=== PATIENT | female | born 2005 | race Caucasian/White ===

== ENCOUNTER → 2024-02-03 11:40 | Outpatient (REF) | payer OTHER, SELFPAY ==
--- NOTE | 2024-02-03 17:17 | HPS.HSE ---
Family Physician
-
Family Physician: Brady Lopez
Chief Complaint
-
Right lower quadrant abdominal pain
History of Present Illness
This is a 18-year-old female presenting to the emergency department today with concerns of right lower quadrant abdominal pain that began roughly 4 days ago. At the onset there was associated nausea and vomiting as well as fevers but these have
dissipated since then. Initially the patient and family thought that this would resolve on its own however as the pain continue to persist she presented to our ER today. Here she has no white count but a CT scan demonstrates dilated fluid-filled
appendix with surrounding inflammation consistent with appendicitis. The patient denies Fever, Chest Pain, Shortness Of Breath, Nausea, Vomiting, changes in urinary and bowel habits, unintentional weight loss.
Medical History
Past Medical History
Past Medical History: Reports None
Past Surgical History: Reports None
Social History
Tobacco: Non-smoker
Alcohol: None
Drug: None
Personal: Single
Living: With Family
Employment: Other (Student)
Family History
Family History: Not pertinent
Allergies / Home Medications
Allergies reflects when Allergies were last updated in [facility].
Home Medications with original date entered in [facility]
Allergy/Medication List:
None
Review of Systems
-
A 12 point ROS was completed and negative except as noted: Yes
Physical Exam
Physical Exam
General: Well Developed
HEENT: NormoCephalic
GI: Soft, Non Distended and Tender (Mild focal tenderness in the right lower quadrant)
Data Reviewed
-
CT Scan: Image Personally Visualized and interpreted, Report Reviewed by me, Discussed with Physician, Discussed with Patient and Discussed with Family
Lab Data: Labs Reviewed by me, Discussed with Physician, Discussed with Patient and Discussed with Family
Impression/Plan
-
IMPRESSION:
This is a 18-year-old female with acute appendicitis
PLAN:
Will plan for a laparoscopic appendectomy in the OR tomorrow.
Okay for full liquid diet, n.p.o. at midnight
IV antibiotics.
Risks/Benefits/Alternatives, expected postoperative course and possible complications (bleeding, infection, injury to surrounding structures, acute/chronic pain) discussed at length. Patient wishes to proceed with surgery. All questions answered.
Consent obtained.
I spent 60 minutes in total for the care of this patient today including direct patient care and counseling, reviewing labs, imaging, coordination of care, as well as documentation.
== END ==
LOC: RAD 11:40
PROVIDERS: ATTENDING PHYSICIAN Family Medicine; FAMILY PHYSICIAN Family Medicine
DX: R63.0 Anorexia (principal); R10.31 Right lower quadrant pain
CPT/HCPCS: 74177; Q9967

== ENCOUNTER 2024-02-03 21:36 | Day surgery (SDC) | payer OTHER, SELFPAY ==
[2024-02-03 14:58] VITALS: BP 116/63
[2024-02-03 15:48] VITALS: BMI 20.7
[2024-02-03 16:05] LABS: % Basophils 0.4 % (0-2); % Immature Granulocytes 0.2 % (0-0.5); % Lymphocytes 39.5 % (20.5-51.1); % Monocytes 4.7 % (1.7-9.3); % Neutrophils 54.2 % (42.2-75.2); Absolute Eosinophils 0.1 10^3/uL (0-0.7); Absolute Lymphocytes 1.9 10^3/uL (1.2-3.4); Absolute Monocytes 0.2 10^3/uL (0.1-0.6); Absolute Neutrophils 2.7 10^3/uL (1.4-6.5); Hematocrit 33.4 % (37.0-47.0); Hemoglobin 11.2 g/dL (12.0-16.0); Mean Corp Hgb Conc. 33.5 g/dL (33.0-37.0); Mean Corpuscular Hgb 30.6 pg (27.0-31.0); Mean Corpuscular Volume 91.3 fL (81.0-99.0); Mean Platelet Volume 10.1 fL (7.4-10.4); Nucleated Red Blood Cells % 0 %; Platelet Count 251 10^3/uL (130-400); Red Blood Cell Count 3.66 10^6/uL (4.20-5.40); Red Cell Dist. Width 12.9 % (11.5-14.5); White Blood Cell Count 4.9 10^3/uL (4.8-10.8)
--- NOTE | 2024-02-03 16:09 | ED.GENMED ---
History of Present Illness
<HERMES Narayanan Jr. Last Filed: 02/03/24 16:46>
General
Chief Complaint: Abdominal Pain
Source: patient and family
Exam Limitations: none
Time Seen by Provider: 02/03/24 15:46
Nursing documentation reviewed up to this point in time: agreed with
History of Present Illness
History of Present Illness:
18-year-old female presenting to the emergency department today with concerns of right lower quadrant abdominal pain over the past 4 days. Associated nausea and vomiting. Reproducible pain to palpation here. An outpatient CT scan ordered by the
primary care doctor which saw acute appendicitis was sent directly to the ER. Denies any fevers. No history of surgeries no daily meds did not eat today.
Review of Systems
<HERMES Narayanan Jr. Last Filed: 02/03/24 16:46>
Review of Systems
Allergies reviewed?: Yes
All Other Systems: ROS reviewed and negative except as documented in HPI and ROS
Phy Exam
<HERMES Narayanan Jr. Last Filed: 02/03/24 16:46>
Physical Exam
Physical Exam:
GENERAL: Alert , in no apparent distress
EYE: pupils equal and reactive
NECK: Supple, no significant adenopathy.
ENT: o/p clr, mmm.
CARDIAC: Regular rate and rhythm .
LUNGS: Clear breath sounds bilaterally, no acute respiratory distress, no wheezes/rales/rhonchi
ABDOMEN: Tenderness outpatient to the right lower quadrant otherwise soft benign abdomen.
NEUROLOGICAL: Alert and oriented, no focal neuro deficits
SKIN: Warm and dry, skin intact.
MUSCULOSKELETAL: No edema, well perfused.
PSYCH: Normal and appropriate interaction.
Course
<HERMES Narayanan Jr. Last Filed: 02/03/24 16:46>
Orders/Labs/Results
Orders:
Orders
02/03/24 15:03
Test Result ONCE
02/03/24 15:57
Complete Blood Count/With Diff Urgent
Comprehensive Metabolic Panel Urgent
HCG, Serum Qualitative Screen Urgent
02/03/24 16:12
Piperacillin/Tazo 3.375 Gram [Zosyn] 3.375 gram in 50 ml IV NOW
Abnormal Lab Results
02/03/24
15:57
RBC 3.66 L 10^6/uL
(4.20-5.40)
Hgb 11.2 L g/dL
(12.0-16.0)
Hct 33.4 L %
(37.0-47.0)
02/03/24 15:57
02/03/24 15:57
Vital Signs
Initial and Last Documented VS:
Initial Vital Signs
Temp Pulse Resp BP Pulse Ox
98.0 F 86 18 116/63 100
02/03/24 14:58 02/03/24 14:58 02/03/24 14:58 02/03/24 14:58 02/03/24 14:58
Last Documented Vital Signs
Temp Pulse Resp BP Pulse Ox
98.0 F 86 18 116/63 100
02/03/24 14:58 02/03/24 14:58 02/03/24 14:58 02/03/24 14:58 02/03/24 14:58
<Wallace Cordova, DO - Last Filed: 02/03/24 16:28>
Orders/Labs/Results
Orders:
Orders
02/03/24 15:03
Test Result ONCE
02/03/24 15:57
Complete Blood Count/With Diff Urgent
Comprehensive Metabolic Panel Urgent
HCG, Serum Qualitative Screen Urgent
02/03/24 16:12
Piperacillin/Tazo 3.375 Gram [Zosyn] 3.375 gram in 50 ml IV NOW
Abnormal Lab Results
02/03/24
15:57
RBC 3.66 L 10^6/uL
(4.20-5.40)
Hgb 11.2 L g/dL
(12.0-16.0)
Hct 33.4 L %
(37.0-47.0)
02/03/24 15:57
02/03/24 15:57
Vital Signs
Initial and Last Documented VS:
Initial Vital Signs
Temp Pulse Resp BP Pulse Ox
98.0 F 86 18 116/63 100
02/03/24 14:58 02/03/24 14:58 02/03/24 14:58 02/03/24 14:58 02/03/24 14:58
Last Documented Vital Signs
Temp Pulse Resp BP Pulse Ox
98.0 F 86 18 116/63 100
02/03/24 14:58 02/03/24 14:58 02/03/24 14:58 02/03/24 14:58 02/03/24 14:58
<Jorge Luis Schwartz Jr., PA-C - Last Filed: 02/03/24 16:46>
MDM/Problems Addressed
MDM/Problems Addressed:
18-year-old female presenting with confirmed appendicitis on outpatient CT scan. Here the patient has some mild tenderness ovation to the right lower quadrant. She did not eat today vital signs are normal patient in no distress case discussed with
general will be admitted for further management.
<Jorge Luis Schwartz Jr., PA-C - Last Filed: 02/03/24 16:46>
*Critical Care Note
Total Time (30-74mins, 75-104mins- exclusive of procedures): Not Applicable
ED Attending Note
<Jorge Luis Schwartz Jr., PA-C - Last Filed: 02/03/24 16:46>
-
Portions of this chart may have been created with voice recognition software.� Occasional wrong word or��sound alike� substitutions may have occurred due to the inherent limitations of voice recognition software.
<Wallace Cordova DO - Last Filed: 02/03/24 16:28>
ED Attending Note
I performed the substantive portion of visit, reviewed & personally made and approve the management plan that is documented in note by myself or LARRY.: Yes
ED Attending Note:
I have reviewed and agree with history and treatment plan by Kvng Schwartz. Discussed with Dr. Solis, general surgery who will admit to his service and plan for surgery in a.m.
Discharge Plan
Departure
Patient Disposition: Admit
Date of Disposition: 02/03/24
Time of Disposition: 16:26
Admit to: Med/Surg
Presentation/result/management discussed w/ accepting MD/DO: Gen surgery Dr. Solis
Patient with high blood pressure during this ER visit?: No
Condition: Good
Discharge Problem:
Acute appendicitis
Prescriptions:
No Action
No Current Medications
0
Referrals:
Brady Lopez DO [Family Provider] -
Interventions
Interventions:
*Risk Screen - Suicide Last Done: 02/03/24 14:58
*General Assessment Last Done: 02/03/24 14:58
*Neglect/Abuse Screening Last Done: 02/03/24 14:58
ED- Fall Risk Assessment Last Done: 02/03/24 15:49
*ED COVID-19 Vaccine History Last Done: 02/03/24 15:49
MR-Rbftni-Bqizrmbyph Assessment Last Done: 02/03/24 15:49
Discharge Date and Time
Print Language: ESTONIAN
[2024-02-03 16:17] LABS: HCG, Serum Qualitative Screen Negative
[2024-02-03 16:20] LABS: ALT (SGPT) 18 U/L (0-35); AST (SGOT) 29 U/L (14-36); Albumin 4.7 g/dl (3.5-5.0); Alkaline Phosphatase 52 U/L (38-126); Blood Urea Nitrogen 10 mg/dl (7-17); Calcium 9.5 mg/dl (8.4-10.2); Carbon Dioxide 27 mmol/L (22-30); Chloride 98 mmol/L (98-107); Estimated Creatinine Clearance 125 ml/min; Glucose 89 mg/dl (70-99); Potassium 4.2 mmol/L (3.5-5.1); Sodium 136 mmol/L (135-145); Total Protein 7.4 g/dl (6.3-8.2); eGFR > 60.00
[2024-02-03] MEDS: ZOSYN 50 IV ×2 (16:35→22:19)
[2024-02-03] MEDS: LOVENOX 40 MG SC (20:47)
[2024-02-03] MEDS: NORMOSOL-R/PLASMALYTE-A 1000 IV (20:50)
[2024-02-03 21:00] VITALS: BP 109/65
[2024-02-04] VITALS (11 sets, daily range): BP systolic 95–121; BP diastolic 46–69
[2024-02-04] MEDS: TYLENOL PO ×2 (00:16→05:46)
[2024-02-04] MEDS: ZOSYN 50 IV ×3 (05:17→15:36)
--- NOTE | 2024-02-04 07:56 | W.SUR.PREOP ---
Pre-Operative Surgical Note
-
I have examined this patient prior to the performance of the scheduled procedure.
The patient's condition is unchanged from the time of the current History and
Physical and the patient is able to undergo the scheduled procedure.
--- NOTE | 2024-02-04 10:28 | PTCARENOTE ---
pt aasox3. states no pain in abd. tender to touch. room air bs clear. ivf running as ordered. pt sent to OR with mother and 1000 zosyn dose.
--- NOTE | 2024-02-04 11:06 | W.IMMPOSTOP ---
Surgical Immed Post Op Note
-
Primary Surgeon: Andrez Solis MD
Assisting Surgeon: None
Pre-op Diagnosis: Acute appendicitis
Post-op Diagnosis: Same
Procedure Performed: Laparoscopic
Anesthesia Type: General
Specimen / Cultures: Appendix
Estimated Blood Loss: 3 cc
Complications: None
Operative Findings: Three 5 mm port appendectomy. Acutely inflamed, hemorrhagic but nonperforated appendicitis. Base somewhat thickened but soft, ligated with 0 PDS Endoloop x 2.
POST OP PLAN:
Imaging: None
Labs: Routine AM
Diet: Advance to Regular as tolerated
Analgesia: Tylenol 650mg q6 Anshu, Trinity 5mg q6 PRN, Dilaudid 0.5mg q2h PRN
Neuro/vascular checks: q4h
AC/AP: Hold Therapeutic AC, Ok for DVT PPx
Activity: Ad Milana
Wound/Incisions/Drains: Routine
Abx: Will continue while in-house, no antibiotics on discharge.
Dispo: RNF, anticipate discharge home later today pending clinical course.
--- NOTE | 2024-02-04 11:08 | OR.RPT ---
Operative Report
Operative Report
Patient Name: Lilian Johnson
: 2005
Date of Operation: 02/04/2024
Preoperative Diagnosis: Acute Appendicitis
Postoperative Diagnosis: Same
Procedure(s):
Laparoscopic Appendectomy
Surgeon(s):
Dr. Solis
Recovery Collector(s):
None
Anesthesia: General
Estimated Blood Loss: 3 cc
Urine Output: None
Drains/Lines/Implants: None
Specimens:
1. Appendix
HPI/Surgical Indications:
This is a 18-year-old female who presents with a 4 day history of abdominal pain. Exam, labs and imaging are consistent with acute appendicitis. Risks/Benefits/Alternatives were discussed at length, and the patient agreed to proceed with surgery.
Operative Findings: Three 5 mm port appendectomy. Acutely inflamed, hemorrhagic but nonperforated appendicitis. Base somewhat thickened but soft, ligated with 0 PDS Endoloop x 2.
Procedure Description:
The patient was placed in the supine position, with the left arm tucked, and general anesthesia was induced. The abdomen was prepared and draped in a sterile fashion so as to expose the entire abdomen. A surgical time out was taken. Abdominal access
was obtained with a 5 mm infra-umbilical Tosha Entry. After confirming no injury on entrance, two additional 5mm ports were placed in the suprapubic area just off midline and in the left lower quadrant. The patient was placed in Trendelenberg with
the right slightly up . The appendix was identified and a window was created in the mesoappendix. The appendix was MRI and inflamed but not perforated. Using a laparoscopic bipolar energy device, the meso appendix was divided. The base of the
appendix appeared uninvolved, thickened but soft and was ligated/divided using two 0-PDS Endoloops and the energy device. The appendix was placed in a specimen retrieval bag. Hemostasis was confirmed and the ports were removed under visualization.
The specimen was passed off the field. The umbilical port was closed with a [id number] 0-PDS and the skin for all three ports was closed with interrupted monocryls and covered with dermabond. The patient was awoken from anesthesia in good
condition and transported to the recovery area.
I was the attending physician and performed the procedure with no assistance. I was present for all portions of the case.
Andrez Solis MD
--- NOTE | 2024-02-04 11:22 | CM ---
Cm reviewed medical records. Patient is medically ready for discharge. No needs noted.
PLAN: home no needs.
[2024-02-04] MEDS: DILAUDID 0.25 MG IV (11:39)
[2024-02-04] MEDS: TORADOL 10 MG IV (11:44)
[2024-02-04] MEDS: TYLENOL 650 MG PO (12:53)
--- NOTE | 2024-02-04 12:57 | PTCARENOTE ---
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 pt states 4/10 pain tylenol given pt drinking and having a lite lunch. no nausea
== END 2024-02-04 16:25 | disposition home or self-care (01) ==
LOC: PACU 21:36
PROVIDERS: Emergency Medicine; ATTENDING PHYSICIAN Surgery; EMERGENCY PHYSICIAN Emergency Medicine; FAMILY PHYSICIAN Family Medicine
DX: K35.80 Unspecified acute appendicitis (principal)
CPT/HCPCS: 44970; 88304; 80053; 84703; 85025; 96365; 99284; C1776